=== PATIENT | male | born 1960 | race Caucasian/White ===

== ENCOUNTER 2016-06-05 18:43 | Inpatient (IN) | payer OTHER ==
[~2016-06-05] VITALS: Ht 175.3 cm; Wt 93.1 kg
--- NOTE | ~2016-06-05 | OR ---
ADMIT: 06/05/2016 RM/LOC: 524 [facility] MR#: [id number] [address] [address] [address] [place] [address] Operative/Delivery Room Report SEX: M AGE: 55 : 1960 SURGERY DATE: 06/05/2016 SURGEON: Reece Garcia MD PREOPERATIVE DIAGNOSES: 1. Left hand injection injury. 2. Left open 1st and 2nd metacarpal fractures. 3. Left open 1st and 2nd proximal phalanx fractures. POSTOPERATIVE DIAGNOSES: 1. Left hand injection injury. 2. Left open 1st and 2nd metacarpal fractures. 3. Left open 1st and 2nd proximal phalanx fractures. DESCRIPTION OF PROCEDURE: The patient was taken to the operating room and received a general anesthetic. The right hand was evaluated. He had diffuse crease around the hand. He had a V-shaped laceration in the 1st web space with the base located towards the palmar side. The laceration extended along the entire 2nd metacarpal towards and just past the MCP joint. He had a 2nd laceration over the PIP joint. We went ahead and prepped and draped the left hand in standard fashion, irrigated out the wounds initially. We then evaluated. He has some devitalized muscle in the 1st webspace, which we gently debrided. The wound overall is oil type injury, is fairly clean. We did not find any foreign bodies within the wound. We used some bacitracin irrigation and then pulse lavaged and was cleaned out the entire wound. We trimmed out some devitalized muscle tissue in the first web space. We then debrided the wound over the PIP joint. He also had a couple smaller wounds over the pulp of the left thumb. Once we thought, we had excellent thorough debridement, we then used some 2-0 Prolene suture and gently tacked all the skin lacerations closed. We will plan on returning in 24 to 48 hours with repeat irrigation and debridement and likely definitive fracture fixation. The tourniquet was deflated after a splint was applied to both the thumb and index finger. He had good cap refill to the digits. He was taken recovery room in stable condition with no complications. Reece Garcia MD/ rafi JOB #: [id number] CC: Reece Garcia, Attending Physician Elyssa Parker, Family Physician
[2016-06-09] MEDS ORDERED: FENOFIBRATE145 MG PO (13:11)
[2016-06-09] MEDS ORDERED: NORCO 5-325 TA1 EACH PO (13:12)
[2016-06-09] MEDS ORDERED: KEFLEX-DPS500 MG PO (13:12)
[2016-06-09] MEDS ORDERED: ZESTORETIC 20/21 TAB PO (13:12)
--- NOTE | 2016-06-10 20:16 | ER ---
ADMIT: 06/05/2016 RM/LOC: 524 [facility] MR#: [id number] [address] [address] [address] [place] [address] Emergency Room Report SEX: M AGE: 55 : 1960 DATE: 06/05/2016 The patient is a 55-year-old, self-employed male, [employer], placed his left hand on hydraulic lift when it gave way, crutched his left hand. This is the same hand in 2006 sustained skill saw injury resulting in index finger radial nerve injury, flexor profundus and superficialis tendon laceration and fracture of the proximal phalanx, treated operatively here. Please see old records. The patient was transported tonight by private auto, drank a Sprite on his way in. No anesthesia troubles. Last tetanus unknown. Exam remarkable for filthy grease impregnated open laceration 12 cm web space, left index finger, with obvious deformity of the index finger. Unable to oppose thumb, index. Able to flex all digits. Decreased sensation radial aspect, index finger, unchanged from baseline. Dense paresthesia, ulnar aspect of thumb. Normal sensation, radial aspect of thumb. X-ray confirms comminuted fracture 1st and 2nd metacarpal and proximal phalanx 1st and 2nd digits. No obvious foreign body noted. Tdap 0.5 mL IM, Ancef 2 g IV piggyback. CBC, CMP pending. The patient made n.p.o. Discussed case with Dr. Garcia, who agrees to take to OR for debridement. Planned operative repair at a later date. Anesthesia notified. Matthieu Vega MD/ rafi JOB #: [id number] CC: Reece Garcia MD, Attending Physician Elyssa Parker APRN, Family Physician INEZ Orellana MD
--- NOTE | 2016-06-28 10:55 | OR ---
ADMIT: 06/05/2016 RM/LOC: 524 [facility] MR#: [id number] [address] [address] [address] [place] [address] Operative/Delivery Room Report SEX: M AGE: 55 : 1960 SURGERY DATE: 06/07/2016 SURGEON: Ketan Kim MD HUB CUTTER APPRENTICE: Darin Hunter PA-C. PREOPERATIVE DIAGNOSIS: Left thumb and index finger metacarpal and proximal phalanx fractures and traumatic wound. POSTOPERATIVE DIAGNOSIS: Left thumb and index finger metacarpal and proximal phalanx fractures and traumatic wound. PROCEDURES PERFORMED: 1. Irrigation and debridement with closure of the wound in the palm about 4 cm in length with debridement down to the muscle nonexcisional. 2. Closed reduction and percutaneous pinning of the thumb metacarpal, index metacarpal, thumb proximal phalanx and index proximal phalanx. IMPLANTS: Nine 45 K-wires. INDICATION: A 55-year-old male who got his hand on a hydraulic Froilan that kind of blew up on him, suffered big laceration and fractures to those fingers. He was initially seen and admitted by Dr. Garcia. Had it irrigated and debrided and then placed on antibiotics. Then he had asked for assistance with definitive management so I agreed to go ahead and bring him back today for definitive management. Discussed with the patient the risks and benefits of different options for treatment. He elected to go ahead with pinning and so he is here for that today. DESCRIPTION OF PROCEDURE: The patient was identified in the preoperative holding area. Written informed consent was confirmed, site was marked. Brought to the OR, placed supine. Regional anesthesia was induced. MAC was induced. The left arm was prepped and draped in the usual sterile fashion. Time-out was performed. Preop antibiotics were confirmed. We began by removing the old sutures and then debriding out that wound in his first web space. Could not find any foreign body. There was really was not much in the way of or necrotic tissue. Everything deep actually looked pretty good and again could not find any kind of foreign material in there after irrigating it out copiously with normal saline. Then I went volarly. He had a laceration longitudinally over the third ray kind around the A1 efrain. This was explored again and no tendon damage, it was relatively clean. I irrigated that out as well and then closed all those wounds up with 3-0 nylon suture. Then began percutaneous pinning using 45 K-wires and started with the index and placed two pins crossing from distal to proximal. It held it nicely fairly stable. I was happy with those and then went to the index proximal phalanx and got three pins across that, holding that nice and stable. Then went to the thumb metacarpal and got two crossing pins from distal to proximal there. Again, I was happy with the stability there, holding it out to length, alignment and rotation. Then the proximal phalanx of the thumb got two good ADMIT: 06/05/2016 RM/LOC: 524 [facility] MR#: [id number] [address] [facility] [address] [place] [address] [address] [place] [address] Operative/Delivery Room Report SEX: M AGE: 55 : 1960 pins there as well from proximal to distal. The pins that went into the proximal phalanx of the index finger I kind of ran them with the finger bent down as much as I could as he is really swollen. I wanted to get them down to about 70 or 80 degrees flexion and he ended up maybe 60 degrees flexion but a ran it from the metacarpal head up into the proximal phalanx. Again, all the fractures were pinned nice and stable. I was really happy with the construct. Put on all the pins, cut them short and covered all the wounds with Xeroform, put a bulky hand dressing on with the splint, kind of a thumb spica, and then a volar resting splint that went up kind of into that first digit as well. Then he was brought to the postoperative care unit in good condition. No complications. Postoperatively, continue with the postop antibiotics. I am going to send him home on Augmentin with pain medicines and see him back in about 5-7 days and we will check on all the wounds, make sure everything is still viable and looking okay. We will plan to go ahead and start getting him into therapy to do some swelling management and start getting things moving as much as we can at that time too. Ketan Kim MD/ tish JOB #: [id number] CC: Reece Garcia, Attending Physician Elyssa Parker, Family Physician
--- NOTE | 2016-07-04 21:07 | HP ---
ADMIT: 06/05/2016 RM/LOC: W.10 [facility] MR#: [id number] [address] [address] [address] [place] [address] Pre-OP History and Physical SEX: M AGE: 55 : 1960 DATE OF SERVICE: CHIEF COMPLAINT: Left hand injury. HISTORY OF PRESENT ILLNESS: The patient is a 55-year-old male, injured his left hand. He was using a hydraulic juan on a house. They were trying to adjust the juan and the juan exploded and injured his left hand. He has a complex laceration of the 1st webspace with multiple fractures. The patient has had a prior left index finger injury. He had hit it with a table saw and nearly amputated the finger. Ever since then, he had numbness on the radial border of the index finger with very limited PIP-DIP joint range of motion. He does not use the finger for activity. He compensates with his 3rd digit. PAST MEDICAL HISTORY: Include hypertension, BPH. PAST SURGICAL HISTORY: Include knee arthroscopies. ALLERGIES: PENICILLIN. SOCIAL HISTORY: The patient does smoke. Occasional alcohol use. REVIEW OF SYSTEMS: Negative. PHYSICAL EXAMINATION: One exam, healthy-appearing male. He has a complex laceration of the 1st webspace, another laceration over the thumb, and another laceration over the index finger. He has some loss of sensation to the ulnar aspect of the thumb. Good sensation on the radial aspect. He has chronic loss of sensation on the index finger, radial side, fairly normal sensation on the ulnar side; 3rd, 4th, and 5th fingers are normal. The patient does have good cap refill to both the thumb and index finger. DIAGNOSTIC DATA: X-rays, AP lateral oblique shows a left 1st proximal phalanx fracture fairly comminuted. A very comminuted 2nd metacarpal neck fracture. He has a very comminuted thumb metacarpal fracture and also a comminuted thumb proximal phalanx fracture. ADMIT: 06/05/2016 RM/LOC: Matthew [facility] MR#: [id number] [address] [address] [address] [place] [address] Pre-OP History and Physical SEX: M AGE: 55 : 1960 IMPRESSION: 1. Left open 1st and 2nd metacarpal comminuted fractures. 2. Left open thumb, phalanx, and index phalanx proximal fractures to his grease injection injury secondary to hydraulic juan. PLAN: At this point, tonight we are going to take the patient to the OR, just to do a thorough irrigation and debridement, temporary close the wounds. Wait for definitive fixation. The patient actually requested possible 1st index finger amputation if indicated because the finger is non-functionable and actually gets in his way. We will further discuss this. For tonight, I will just plan on doing the irrigation and debridement. He is aware of the risks, benefits, and options, agreed to proceed. Reece Garcia MD/ rafi JOB #: [id number] CC: Reece Garcia, Attending Physician Elyssa Parker, Family Physician
--- NOTE | 2016-07-04 21:07 | DS ---
ADMIT: 06/05/2016 RM/LOC: 524 [facility] MR#: [id number] [facility]#: [id number] [address] [id number] [place], [place] [address] [address] [place] [address] General Discharge Summary SEX: M AGE: 55 : 1960 ADMISSION DATE: 06/05/2016 DISCHARGE DATE: 06/08/2016 REASON FOR ADMISSION: The patient injured his left hand using a hydraulic juan on a house. He had a complex laceration on the first web space with multiple fractures needing evaluation and treatment. The patient required 2 procedures performed. PREOPERATIVE DIAGNOSES OF THE FIRST PROCEDURE: 1. Left hand injection injury. 2. Left open first and second metacarpal fractures. 3. Left open first and second proximal phalanx fractures. POSTOPERATIVE DIAGNOSES OF THE FIRST PROCEDURE: 1. Left hand injection injury. 2. Left open first and second metacarpal fractures. 3. Left open first and second proximal phalanx fractures. PROCEDURE PERFORMED: Debridement and irrigation of open wounds and fractures and closure of skin. SURGEON: Reece Garcia MD. COMPLICATIONS: None. PREOPERATIVE DIAGNOSIS OF THE SECOND PROCEDURE: Left thumb and index finger metacarpal and proximal phalanx fractures and traumatic wound. POSTOPERATIVE DIAGNOSIS OF THE SECOND PROCEDURE: Left thumb and index finger metacarpal and proximal phalanx fractures and traumatic wound. PROCEDURE PERFORMED: Irrigation and debridement with closure of the wound in the palm about 4 cm long with debridement down to the muscle not excision into close reduction and percutaneous pinning of the thumb metacarpal, index metacarpal, thumb proximal phalanx, and index proximal phalanx. SURGEON: Ketan Kim MD. AUTO DEALERSHIP PORTER: Darin Hunter PA-C. ACTIVE MEDICAL PROBLEMS: Hypertension and BPH. HOSPITAL COURSE: The patient was admitted on 06/05/2016 after an injury to his left hand. He was taken back to the OR on 06/05/2016 for irrigation and debridement as well as wound closure by Dr. Garcia. This was completed without any complications. The patient was then taken back to the OR on 06/07/2016, for repeat irrigation and debridement of the wound and closure as well as closed reduction percutaneous pinning of the first and second metacarpals and proximal phalanges done by Dr. Kim without any ADMIT: 06/05/2016 RM/LOC: 524 [facility] MR#: [id number] [address] [address] [address] [place] [address] General Discharge Summary SEX: M AGE: 55 : 1960 complications. The patient had an otherwise unremarkable hospital course, remained afebrile, and hemodynamically stable. He was discharged home on 06/08/2016 with Keflex 500 mg 2 tablets twice a day for five days for prophylaxis. DISCHARGE MEDICATIONS: 1. Fenofibrate 134 mg every day. 2. Lisinopril/hydrochlorothiazide 20 to 25 mg 1/2 tablet daily. 3. [place] 5/325 mg every 6 hours as needed for pain. 4. Keflex 500 mg 2 tablets twice daily for 5 days. DISCHARGE INSTRUCTIONS: The patient was discharged home with plans for followup in the orthopedic office with Dr. Kim in 4 to 5 days for wound check and x-ray. Follow up with primary care as directed. DAMEON De Leon / Reece Garcia MD / rafi JOB #: [id number] CC: Reece Garcia MD, Attending Physician Elyssa Parker APRN, Family Physician
== END 2016-06-08 12:33 | disposition home or self-care (01) | DRG 514 ==
LOC: ER 18:43 → 5MS 20:15 → WOR 20:15 → 5MS 20:36
PROVIDERS: ADMIT Orthopaedic Surgery
DX: S62.611B Displaced fracture of proximal phalanx of left index finger, initial encounter for open fracture (principal); I10 Essential (primary) hypertension; S62.613B Displaced fracture of proximal phalanx of left middle finger, initial encounter for open fracture; S62.512B Displaced fracture of proximal phalanx of left thumb, initial encounter for open fracture; W24.0XXA Contact with lifting devices, not elsewhere classified, initial encounter; S61.221A Laceration with foreign body of left index finger without damage to nail, initial encounter; N40.0 Benign prostatic hyperplasia without lower urinary tract symptoms; S61.012A Laceration without foreign body of left thumb without damage to nail, initial encounter; S61.412A Laceration without foreign body of left hand, initial encounter